=== PATIENT | male | born 2000 | race Caucasian/White ===

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

== ENCOUNTER 2020-06-16 05:25 | Emergency (ER) | payer BC ==
[~2020-06-16] VITALS: Ht 172.7 cm; Wt 93.2 kg
[2020-06-16 05:35] VITALS: TEMP 98.3
[2020-06-16 06:32] VITALS: BP 123/84; PULSE 87
== END 2020-06-16 06:35 | disposition home or self-care (01) ==
LOC: COL.ER 05:25
DX: S93.402A Sprain of unspecified ligament of left ankle, initial encounter (principal); F10.129 Alcohol abuse with intoxication, unspecified; X50.1XXA Overexertion from prolonged static or awkward postures, initial encounter; Y92.009 Unspecified place in unspecified non-institutional (private) residence as the place of occurrence of the external cause